=== PATIENT | female | born 1935 | race Caucasian/White ===

== ENCOUNTER 2017-03-31 01:14 | Emergency (ER) | END 2017-03-31 05:24 | disposition left against medical advice (07) ==

== ENCOUNTER 2017-04-01 21:19 | Inpatient (IN) | END 2017-04-06 16:10 | disposition home health service (06) | DRG 372 ==

== ENCOUNTER 2017-05-12 02:55 | Inpatient (IN) | END 2017-05-18 18:56 | disposition hospice, home (50) | DRG 871 ==

== ENCOUNTER 2017-06-13 10:00 | Inpatient (IN) | END 2017-06-17 15:20 | disposition hospice, home (50) | DRG 871 ==